=== PATIENT | female | born 1960 | race Caucasian/White ===

== ENCOUNTER 2020-12-27 14:17 | Outpatient (CLI) | payer BC | END 2020-12-27 14:18 | disposition home or self-care (01) | LOC: CSHMAMMO 14:17 | PROVIDERS: ATTEND Family Medicine | DX: Z12.31 Encounter for screening mammogram for malignant neoplasm of breast (principal); Z98.82 Breast implant status | CPT/HCPCS: 77063; 77067 ==

== ENCOUNTER 2022-12-23 15:12 | Outpatient (CLI) | payer BC | END 2022-12-23 15:13 | disposition home or self-care (01) | LOC: CSHMAMMO 15:12 | PROVIDERS: ATTEND Family Medicine | DX: Z01.89 Encounter for other specified special examinations (principal); M85.89 Other specified disorders of bone density and structure, multiple sites | CPT/HCPCS: 77080 ==

== ENCOUNTER 2023-04-30 08:38 | Outpatient (CLI) | payer OTHER | END 2023-04-30 08:39 | disposition home or self-care (01) | LOC: CSHMAMMO 08:38 | PROVIDERS: ATTEND Family Medicine | DX: Z12.31 Encounter for screening mammogram for malignant neoplasm of breast (principal); Z98.82 Breast implant status | CPT/HCPCS: 77063; 77067 ==